=== PATIENT | female | born 1995 | race Caucasian/White ===

== ENCOUNTER → 2022-07-02 15:58 | Outpatient (BNVA) | payer OTHER, SELFPAY | PROVIDERS: Visit Provider Internal Medicine | DX: M75.21 Bicipital tendinitis, right shoulder (principal) | CPT/HCPCS: 99203 ==

== ENCOUNTER → 2022-07-06 13:36 | Outpatient (BNVA) | payer OTHER, SELFPAY | PROVIDERS: Visit Provider Internal Medicine | DX: M75.41 Impingement syndrome of right shoulder (principal); R42 Dizziness and giddiness; T39.315A Adverse effect of propionic acid derivatives, initial encounter | CPT/HCPCS: 99213 ==

== ENCOUNTER → 2022-07-10 14:19 | Outpatient (BNVA) | payer OTHER, SELFPAY | PROVIDERS: Visit Provider Internal Medicine | DX: M75.21 Bicipital tendinitis, right shoulder (principal) | CPT/HCPCS: 99213 ==

== ENCOUNTER → 2022-07-23 08:05 | Outpatient (BNVA) | payer OTHER, SELFPAY | PROVIDERS: Visit Provider Internal Medicine | DX: M75.31 Calcific tendinitis of right shoulder (principal) | CPT/HCPCS: 99213 ==

== ENCOUNTER 2022-08-08 08:30 | Outpatient (RCR) | payer OTHER, SELFPAY ==
--- NOTE | 2022-07-20 11:00 | MHC.OT.EP ---
[address] [phone] Occupational Therapy Plan of Care Patient Name: Mary Cali Date of Evaluation: 07/20/22 Diagnosis: Right elbow pain Pain Location: Mild pain at rest in right elbow, denies resting pain in shoulder Moderate ache w/ use Pain Score: 5 Pain Scale Used: Numeric (0 - 10) Aggravating Factors: Reaching/stretching Alleviating Factors: Ibuprophen, rest Assessment: 26 yo female developed pain in her shoulder with repetitive motion at work, pain started to radiate down right elbow. She was seen in and referred to PT and OT. On assessment, she reports slight resting pain in right elbow, qualifies as a deep joint ache that worsens w/ use. 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 She will benefit from brief course of OT to address pain and weakness w/ focus on joint protection. Frequency and Duration: The patient will be seen 2x/wk for 3 weeks Short Term Goals: Ind w/ HEP Ind w/ heat and cold modalities as appropriate for comfort Right gross grasp >55lb Pt to report pain free elbow at rest Pt to demo reaching up into cabinet to grasp object w/ good range and minimal pain B2B Sales Consultant Goals: Same as above Treatment Plan: Therapeutic Exercise Therapeutic Activity Home Exercise Program Patient Education ADL Training Ultrasound MHP Cold Packs Soft Tissue Mobilization Kinesiotaping Electronically Signed By: Christina Winters OTR/Gillian CHT Please Sign and return to therapist. Thank you once again for your referral.
--- NOTE | 2022-08-20 11:43 | MHC.OT.DC ---
[address] [phone] F: [phone] Occupational Therapy Discharge Note Patient Name: Mary Cali Provider: Dr Fuad Oates Diagnosis: Right elbow pain Date of Evaluation: 07/20/22 Date of Discharge: 08/08/22 Treatments to Date: 3 Discharge Summary: Mary was referred to OT for right elbow pain due to repetitive movement at work. She has done well w/ brief course of OT, goals met and good ROM and strength. She reports occasional low posterior elbow pain at worst and tolerates ther ex and simulated daily activities without difficulty here in the clinic. She is continuing PT for shoulder pain, but I anticipate continued improvement with daily activities and her HEP. Electronically Signed By: MARYJANE Jimenez/Gillian CHT Reviewed/agree with student documentation: Therapist: Please Sign and return to therapist, thank you for your referral.
== END 2022-08-20 11:44 | disposition home or self-care (01) ==
LOC: HO.OT 08:30
PROVIDERS: Visit Provider Internal Medicine
DX: M77.8 Other enthesopathies, not elsewhere classified (principal); M25.521 Pain in right elbow
CPT/HCPCS: 97035; 97110; 97165; 97530

== ENCOUNTER → 2022-08-09 13:03 | Outpatient (BNVA) | payer OTHER, SELFPAY | PROVIDERS: Visit Provider Internal Medicine | DX: M75.31 Calcific tendinitis of right shoulder (principal) | CPT/HCPCS: 99213 ==

== ENCOUNTER 2022-08-29 08:00 | Outpatient (RCR) | payer OTHER, SELFPAY ==
--- NOTE | 2022-07-17 13:46 | MHC.PT.EP ---
[facility] [place] Office [place] Office [place] Office [address] [place] [address] [address] [phone] F: [phone] F: [phone] F: [phone] F: [phone] Physical Therapy Plan of Care Date of Evaluation: Date of Surgery: NA Diagnosis: R SHOULDER RTC TENDONITIS Assessment: Pt IS 26 YO F REFERRED TO PT FROM WITH R SHLDER RTC TENDONITIS. 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 Pt PRESENTS WITH OVERALL GOOD SHLDER ROM AND STRENGTH WITH SOME LIMITATION IN POSTURAL STABILITY AND UPPER BODY STRENGTH. C/O PAIN BUT OVERALL BETTER SINCE SHE HASNT BEEN DOING THAT JOB ANYMORE. SHOULD BENEFIT FROM SHORT BOUT OF THERAPY TO ADDRESS THESE ISSUES WITH STRETCHES, STRENGTHENING EXS AND ST WORK Frequency and Duration: The patient will be seen 2X/WK X 3 WKS Short Term Goals: 1. INCREASED AWARENESS POSTURE AND SHLDER CARE Manufacturing Engineer Assembly Goals: 1. I HEP WITH DC EX PLAN 2. IMPROVED SPADI (61/130 AT SOC) 3. DECREASED R SHLDER PAIN AT LEAST 50% WITH ADLS Treatment Plan: Modalities to reduce pain, spasms and effusion. Manual therapy to restore motion and function. Therapeutic exercise to improve strength and flexibility. Neuromuscular re-education for posture and balance. Therapeutic activities to return to functional activities of daily living. Electronically signed by: COLBY MERCADO PT Please sign and return to therapist. Thank you for your referral.
--- NOTE | 2022-09-14 13:35 | MHC.PT.DC ---
[facility] [place] Office [place] Office [place] Office [address] Parul Butler [address] [phone] F: [phone] F: [phone] F: [phone] F: [phone] Physical Therapy Discharge Report Diagnosis: R SHOULDER RTC TENDONITIS Date of Surgery: NA Date of Evaluation: 07/17/22 Date of Discharge: 09/14/22 Treatments to Date: 8 Cancellations to Date: No Shows to Date: Discharge Status: Independent with HEP Patient Elected to Stop Discharge Summary: PER ASSESSMENT FROM LAST APPT ON 08/29/22 Pt able to keara all added exercise w/o adverse effect. Some noted muscle soreness/burning throughout however without sharp pain. Continue to progress to keara with increased CKC exerrcises. THEN NO SHOWED LAST APPT Electronically signed by: COLBY MERCADO PT Please sign and return to therapist. Thank you for your referral.
== END 2022-09-14 13:36 | disposition home or self-care (01) ==
LOC: HO.PT 08:00
PROVIDERS: Visit Provider Internal Medicine
DX: M77.8 Other enthesopathies, not elsewhere classified (principal); M25.521 Pain in right elbow
CPT/HCPCS: 97110; 97140; 97161

== ENCOUNTER → 2022-08-31 07:59 | Outpatient (BNVA) | payer OTHER, SELFPAY | PROVIDERS: Visit Provider Internal Medicine | DX: M25.511 Pain in right shoulder (principal) | CPT/HCPCS: 99213 ==

== ENCOUNTER 2023-04-25 19:49 | Emergency (ER) | payer OTHER, SELFPAY ==
[2023-04-25 20:30] VITALS: BP 118/71; PULSE 102; RESP 18; TEMP 37.2; O2SAT 96; BMI 37.1
--- NOTE | 2023-04-25 20:31 | ED_ITS ---
HPI - Abdominal Pain General Chief Complaint: Nausea/Vomiting/Diarrhea Stated Complaint: vomiting,fever Time Seen by Provider: 04/25/23 23:48 Source: patient Mode of arrival: ambulatory Limitations: no limitations History of Present Illness HPI narrative: Patient recently had COVID about 4 weeks ago treated with doxycycline which she finished yesterday today patient has been having multiple episodes of vomiting almost every hour soft stool do not eat much at fever temperature of 101 degrees on arrival also complaining of sore throat diffuse abdominal cramps no urinary symptoms Related Data Previous Rx's Medication Instructions Recorded ondansetron 4 mg disintegrating 4 mg PO Q6-8H PRN nausea and 04/26/23 tablet vomiting #10 tabs Allergies Allergy/AdvReac Type Severity Reaction Status Date / Time Penicillins Allergy Unknown RASH Verified 04/25/23 20:30 Review of Systems Review of Systems Yes all other systems are reviewed and are negative [facility] Social History Social History Advance Directives: No Advance Directives Information Provided: Yes Physical Exam ED Vital Signs: Vital Signs - 24 hr 04/25/23 20:30 04/25/23 23:32 04/26/23 02:00 Temperature 99.0 F 98.9 F 98.9 F Pulse Rate 102 H 90 97 Respiratory Rate 18 16 18 Blood Pressure 118/71 121/69 114/57 L Pulse Oximetry 96 96 95 Oxygen Delivery Method Room Air Room Air Room Air BMI result Body Mass Index 37.1 Appearance: Alert. Oriented X3. No acute distress. Febrile Eyes: No pallor or icterus ENT: Pharynx inflamed Oral Mucosa moist Neck: Normal inspection. Neck supple. CVS: Normal heart rate and rhythm. Pulses normal. Respiratory: No respiratory distress. Equal air entry bilateral, no wheezing/rales/rhonchi Abdomen: Soft and nontender. Bowel sounds are present, diffuse discomfort no focal tenderness or guarding no mass palpable, no CVA tenderness Skin: Skin warm and dry. Normal skin color. Normal skin turgor. Extremities: No lower extremity edema. No calf tenderness Neuro: Oriented X 3. Course Course Course Narrative: This is a rapid medical exam. Deferred additional HPI, ROS, PE to primary provider. 27 yo female with no known medical history here with complaints vomiting, subjective fever, headache which began today. unable to maintain PO. 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 fluids will discharge patient home had leukocytosis secondary to volume loss no signs of significant abdominal pathology Differential Diagnosis Differential Diagnoses: The differential diagnosis associated with the presentation includes Acute gastroenteritis/viral syndrome Lab Data [facility] Lab Attestation statement: I reviewed the patient's lab results. 04/25/23 20:54 04/25/23 20:54 Labs: Lab Results 04/25/23 04/26/23 Range/Units 20:54 01:32 WBC 20.1 H (4.8-10.8) X10*3/uL RBC 4.37 (4.20-5.50) X10*6/uL Hgb 13.1 (12.0-16.0) g/dl Hct 37.6 (37.0-47.0) % MCV 86.0 (80.0-98.0) fL MCH 30.0 (27.0-33.0) pg MCHC 34.8 (31.0-35.0) g/dl RDW 12.6 (11.0-16.0) % Plt Count 225 (160-400) X10*3/uL MPV 11.6 (9.4-12.3) fL Immature Gran % (Auto) 0.5 H (0.0-0.4) % Neut % (Auto) 90.9 H (45-73) % Lymph % (Auto) 4.5 L (20-40) % [place] % (Auto) 3.9 (2-11) % Eos % (Auto) 0.1 (0-4) % Baso % (Auto) 0.1 (0-2) % Lymph # (Auto) 0.9 L (1.2-4.9) X10*3/uL [place] # (Auto) 0.8 (0.1-1.2) X10*3/uL Eos # (Auto) 0.0 (0.0-0.4) X10*3/uL Baso # (Auto) 0.0 (0.0-0.2) X10*3/uL Abs Immat Gran (auto) 0.10 H (0.00-0.03) X10*3/uL Absolute Neuts (auto) 18.2 H (2.0-8.3) x10*3/uL Absolute Nucleated RBC 0.000 (0.0-0.012) X10*3/uL Nucleated RBC % (auto) 0.0 (0.0-0.2) /100WBC Smear Tech's Comments VERIFIED Sodium 137 (135-145) mmol/L Potassium 4.4 (3.3-5.1) mmol/L Chloride 103 (96-108) mmol/L Carbon Dioxide 23 (22-29) mmol/L Anion Gap 15 (12-20) BUN 9 (9-16) mg/dL Creatinine 0.75 (0.5-1.4) mg/dL Estim Creat Clear Calc 142.3 Estimated GFR > 60 Random Glucose 134 H (60-115) mg/dL Calcium 9.6 (8.4-10.2) mg/dL Magnesium 1.7 (1.6-2.6) mg/dL Urine Color Dark Yellow Urine Appearance Cloudy Urine pH 8.5 (5.0-9.0) Ur Specific [place] >= 1.030 H (1.005-1.025) Urine Protein 30 (1+) H (Neg-Trace) mg/dL Urine Glucose (UA) Negative (Negative) mg/dL Urine Ketones 40 (Negative) mg/dL Urine Blood Negative (Negative) Urine Nitrite Negative (Negative) Ur Leukocyte Esterase Trace H (Negative) Urine RBC 0-2 (0-2) /HPF Urine WBC 0-5 (0-5) /HPF Ur Squamous Epith Cells 11-20 (0-2) /HPF Urine Bacteria 3+ (None Seen) Hyaline Casts 0-2 (0-2) /LPF Urine Test NEGATIVE (NEGATIVE) Influenza Type A (PCR) NEGATIVE (Negative) Influenza Type B (PCR) NEGATIVE (Negative) RSV RNA Qual (PCR) NEGATIVE (Negative) SARS-CoV-2 RNA (RT-PCR) NEGATIVE (Negative) S. pyogenes GrpA KATARINA Negative (Negative) Medications Administered Discontinued Medications Generic Name Dose Route Start Last Admin Trade Name Freq PRN Reason Stop Dose Admin Acetaminophen 975 mg 04/26/23 00:17 04/26/23 01:05 Acetaminophen 325 Mg Tablet PO 04/26/23 00:18 975 mg ONCE ONE Administration Sodium Chloride 1,000 mls @ 999 mls/hr 04/26/23 00:17 04/26/23 01:03 Ns IV 04/26/23 01:17 999 mls/hr .Q1H1M ONE Administration Ketorolac Tromethamine 30 mg 04/26/23 00:17 04/26/23 01:04 Ketorolac Tromethamine 30 Mg/Ml Vial IVPUSH 04/26/23 00:18 30 mg ONCE ONE Administration Ondansetron HCl 4 mg 04/26/23 00:25 04/26/23 01:03 Ondansetron Hcl 4 Mg/2 Ml Vial IVPUSH 04/26/23 00:26 4 mg ONCE ONE Administration Discharge Plan Discharge Clinical Impression: Gastroenteritis Patient Disposition: Home, Self-Care Instructions: Acute Nausea and Vomiting (ED) Additional Instructions: Drink plenty of fluids Medicine for nausea as prescribed Follow with PCP if not better Prescriptions: New ondansetron 4 mg tablet,disintegrating 4 mg PO Q6-8H PRN (Reason: nausea and vomiting) Qty: 10 0RF
[2023-04-25 21:00] LABS: Basophils Percent Auto 0.1 % (0-2); Eosinophils Percent Auto 0.1 % (0-4); Hematocrit 37.6 % (37.0-47.0); Hemoglobin 13.1 g/dl (12.0-16.0); Imm Gran Pct Auto 0.5 % (0.0-0.4); Lymphocytes Absolute Auto 0.9 X10*3/uL (1.2-4.9); Lymphocytes Percent Auto 4.5 % (20-40); MANUAL DIFF FLAG SCAN; Mean Corpuscular HGB Conc 34.8 g/dl (31.0-35.0); Mean Platelet Volume 11.6 fL (9.4-12.3); Monocytes Absolute Auto 0.8 X10*3/uL (0.1-1.2); Monocytes Percent Auto 3.9 % (2-11); Neutrophils Absolute Auto 18.2 x10*3/uL (2.0-8.3); Neutrophils Percent Auto 90.9 % (45-73); Platelet Count 225 X10*3/uL (160-400); Red Blood Count 4.37 X10*6/uL (4.20-5.50); Red Cell Distribution Width 12.6 % (11.0-16.0); SCAN SMEAR FLAG 1; White Blood Count 20.1 X10*3/uL (4.8-10.8)
[2023-04-25 21:01] LABS: Appearance Urine Cloudy; Color Urine Dark Yellow; Glucose Urine UA Negative (Negative); Leukocyte Esterase Urine Trace (Negative); Nitrite Urine Negative (Negative); PH 8.5 (5.0-9.0); Specific Gravity - Urine >= 1.030 (1.005-1.025); UMIC TRIGGER UACC YES; Urine Blood Negative (Negative); Urine Ketones 40 mg/dL (Negative); Urine Protein 30 (1+) mg/dL (Neg-Trace)
[2023-04-25 21:02] LABS: UPreg QC Valid YES; Urine Pregnancy NEGATIVE (NEGATIVE)
[2023-04-25 21:03] LABS: Bacteria Urine 3+ (None Seen); Hyaline Casts Urine 0-2 /LPF (0-2); RBC Urine 0-2 /HPF (0-2); WBC Urine 0-5 /HPF (0-5)
[2023-04-25 21:17] LABS: Anion Gap 15 (12-20); Blood Urea Nitrogen 9 mg/dL (9-16); Calcium 9.6 mg/dL (8.4-10.2); Carbon Dioxide 23 mmol/L (22-29); Chloride 103 mmol/L (96-108); Creatinine Clr Calc Pharmacy 142.3; Estimated Glomerular Filt Rate > 60; Glucose Random 134 mg/dL (60-115); Magnesium 1.7 mg/dL (1.6-2.6); Potassium 4.4 mmol/L (3.3-5.1); SLIDE REVIEW VERIFIED; Sodium 137 mmol/L (135-145)
[2023-04-25 21:37] LABS: Influenza A PCR NEGATIVE (Negative); Influenza B PCR NEGATIVE (Negative); Resp Syncy Virus RNA Qual PCR NEGATIVE (Negative); SARS COV2 PCR INHOUSE NEGATIVE (Negative)
[2023-04-25 23:32] VITALS: BP 121/69; PULSE 90; RESP 16; TEMP 37.2; O2SAT 96
--- NOTE | 2023-04-25 23:33 | MHC.EDTECH ---
This pct just assumed care of patient ,vitals taken ,Pt waiting to see Provider .
[2023-04-26] MEDS: 0.9 % Sodium Chloride 1,000 ML 999 ML IV ×2 (01:03→02:09)
[2023-04-26] MEDS: ondansetron HCL 4 MG/2 ML VIAL IVPUSH (01:03)
[2023-04-26] MEDS: Ketorolac Tromethamine 30 MG/ML VIAL IVPUSH (01:04)
[2023-04-26] MEDS: Acetaminophen 325 MG TABLET 975 MG PO (01:05)
[2023-04-26 01:55] LABS: IDNOW Serial# 6674DD1D; Strep A Nucleic Acid Negative (Negative)
[2023-04-26 02:00] VITALS: BP 114/57; PULSE 97; RESP 18; TEMP 37.2; O2SAT 95
== END 2023-04-26 03:18 | disposition home or self-care (01) ==
PROVIDERS: Nurse Practitioner Family; Emergency Provider Internal Medicine
DX: K52.9 Noninfective gastroenteritis and colitis, unspecified (principal); R11.2 Nausea with vomiting, unspecified; R50.9 Fever, unspecified; Z79.899 Other long term (current) drug therapy; Z11.52 Encounter for screening for COVID-19; Z20.822 Contact with and (suspected) exposure to COVID-19
CPT/HCPCS: 0241U; 80048; 81001; 81003; 81025; 83735; 85025; 87651; 96361; 96374; 96375; 99284; 99285; J1885; J2405

== ENCOUNTER → 2023-09-26 09:41 | Outpatient (BNVA) | payer OTHER, SELFPAY | PROVIDERS: Visit Provider Physician Assistant Medical | DX: M70.811 Other soft tissue disorders related to use, overuse and pressure, right shoulder (principal) | CPT/HCPCS: 99203 ==

== ENCOUNTER → 2023-10-10 09:21 | Outpatient (BNVA) | payer OTHER, SELFPAY | PROVIDERS: PCP Registered Nurse; Visit Provider Physician Assistant Medical | DX: M70.811 Other soft tissue disorders related to use, overuse and pressure, right shoulder (principal) | CPT/HCPCS: 99213 ==

== ENCOUNTER 2023-12-11 09:00 | Outpatient (RCR) | payer OTHER, SELFPAY ==
--- NOTE | 2023-10-04 12:44 | MHC.PT.EP ---
[facility] [place] Office [place] Office [place] Office [address] Parul Butler [address] [phone] F: [phone] F: [phone] F: [phone] F: [phone] Physical Therapy Plan of Care Date of Evaluation: 10/04/23 Date of Surgery: Diagnosis: R shoulder tendonitis ( Dx) Assessment: Pt tolerated pt session well. Pt presents w/ R shoulder pain which has been present since September 09. Postural assessment reveals anteriorly tilted GH joints, abducted scapula (slightly more on R), and R shoulder elevation. Pt also had increased tissue tension in B upper traps (slightly more on R side). Pt had good strength and almost full ROM w/ B UE, however nearly all motions provoked pain such as shoulder abduction and ER. Pt displayed sig weakness in lower and mid traps B. Passive ROM did not provoke pain in pt, so injury may be more muscular related. Pt was shown some gentle exercises to improve periscapular strength and postural awareness. Pt had mild discomfort w/ scap squeezes and no discomfort w/ extension when given YTB, so pt was told to complete exercise in a tolerable range. Pt was also shown pec stretch and UT stretch to address increased TT. PT was given band and printout of HEP and had no further questions. Future sessions will work on improving posture, reducing tissue tension in mid/upper back, and strengthening periscapular musculature in a tolerable range for the pt. Frequency and Duration: The patient will be seen 2x week 6 weeks Short Term Goals: In 3 weeks: Pt will report pain no higher than 3/10 at worst to allow for improved ability to perform work duties (cleaning tables, changing diapers, holding children, etc.). Pt will improve shoulder flexion ROM by 10 degrees to allow for improved ability to reach overhead while putting away dishes. Pt will improve SPADI score by 13 points to allow for improved ability to complete personal care (brushing hair, getting dressed, etc.). Nursing Home Goals: In 6 weeks: Pt will be pain free to allow for enhanced ability to carry and lift items in household. Pt will have B UE ROM WNLs to allow for improved ability to remove and place items in pants pockets. Pt will have middle and lower trap strength of at least 4+/5 to demonstrate improved posture. Treatment Plan: Modalities to reduce pain, spasms and effusion. Manual therapy to restore motion and function. Therapeutic exercise to improve strength and flexibility. Neuromuscular re-education for posture and balance. Therapeutic activities to return to functional activities of daily living. Electronically signed by: Dax Cole, PT, DPT Please sign and return to therapist. Thank you for your referral.
== END 2023-12-31 10:14 | disposition home or self-care (01) ==
LOC: HO.PT 09:00
PROVIDERS: PCP Registered Nurse; Visit Provider Physician Assistant Medical
DX: M77.8 Other enthesopathies, not elsewhere classified (principal); M67.813 Other specified disorders of tendon, right shoulder
CPT/HCPCS: 97110; 97140; 97161; 97530; 97535